=== PATIENT | female | born 1970 | race Caucasian/White ===

== ENCOUNTER → 2018-12-16 | Outpatient (CLI) | payer OTHER ==
[~2018-12-16] MED LIST: ACETAMINOPHEN325 M1 PO; GYNODIOL1 MG PO; HYDROCODON-ACE1 EAC7; IBUPROFEN 800800 M1 PO; KINERET100 MG/0.6 SUBQ; LEVOTHROID175 MCG; NORCO 5-325 TA1 EAC1 PO; PERCOCET 5-3251 EACH PO; PREDNISONE 1 MG1 M1 PO; PREDNISONE 5 MG5 M1; PREDNISONE 5 MG5 M1 PO; TRAMADOL 50 MG50 MG; VALIUM5 MG PO; ZOFRAN ODT4 MG PO; ZOLOFT 50 MG TA50 M1
== END ==
LOC: M.RAD 12-11 07:37
DX: Z12.31 Encounter for screening mammogram for malignant neoplasm of breast (principal); Z13.820 Encounter for screening for osteoporosis; Z78.0 Asymptomatic menopausal state

== ENCOUNTER → 2019-05-26 | Outpatient (CLI) | payer OTHER | LOC: M.ULTRA 14:00 | DX: R10.9 Unspecified abdominal pain (principal) ==

== ENCOUNTER → 2019-12-16 | Outpatient (CLI) | payer OTHER | LOC: M.RAD 13:17 | DX: Z12.31 Encounter for screening mammogram for malignant neoplasm of breast (principal) ==